=== PATIENT | female | born 1990 | race Caucasian/White ===

== ENCOUNTER 2018-05-21 08:41 | Emergency (ER) | payer SELFPAY ==
[2018-05-21 08:47] VITALS: BP 115/86
[2018-05-21] MEDS ORDERED: LIS50 PO (08:49)
--- NOTE | 2018-05-21 08:53 | ER Report ---
History and Physical Time Seen By MD: 08:52 Hx. of Stated Complaint: SORE THROAT SINCE SUNDAY HPI/ROS Otherwise healthy 28-year-old female with sore throat for 3 days. No fever c hills. Taking by mouth. Changes in voice. No trismus. Does also report her pain. Dysphasia was on the right side which improved, and now more on the left. No abdominal pain. No nausea vomiting. No rash Remainder of the 14 system rev: Yes Allergies: Coded Allergies: Penicillins (Verified Allergy, Unknown, 05/21/18) Home Meds Active Scripts Azithromycin (ZITHROMAX) 250 Mg Tablet, 1 TAB PO QDAY for 4 Days, #4 TAB Prov:LEON FITZGERALD MD 05/21/18 Reported Medications Lisdexamfetamine Dimesylate (VYVANSE) 50 Mg Capsule, 50 MG PO QDAY, CAPSULE 05/21/18 Reviewed Nurses Notes: Yes Hx Smoking: No Smoking Status: Never Smoker Exposure to Second Hand Smoke?: No Hx Substance Use Disorder: No Hx Alcohol Use: No Constitutional Vital Sign - Last 24 Hours 05/21/18 08:47 Temp 97.5 Pulse 109 Resp 20 B/P (MAP) 115/86 Pulse Ox 96 O2 Delivery Room Air Physical Exam General Appearance: Alert, no distress. Eyes: Pupils equal and round no pallor or injection. Mouth: Mucous membranes are moist. Throat: b/l erythema with left sided exudate. there is no tonsillar hypertrophy and uvula is midline. No [employer], No pain with tracheal rock. No trismus Musculoskeletal: Neck is supple non tender, no adenopathy. Skin: Warm and dry, no rashes. DIFFERENTIAL DIAGNOSIS: After history and physical exam differential diagnosis was considered for viral pharyngitis, strep pharyngitis, [employer], RPA, epiglottitis Medical Decision Making Data Points Laboratory Hematology Test 05/21/18 08:50 Group A Streptococcus (PCR) Positive (NEGATIVE) Chemistry Test 05/21/18 08:50 Group A Streptococcus (PCR) Positive (NEGATIVE) ED Course/Re-evaluation ED Course I'm complicated streptococcal pharyngitis. Taking by mouth. No trismus or changes in voice. Given Decadron and azithromycin secondary to penicillin allergy. Will continue with Azithromycin. Decision to Disposition Date: May 21, 2018 Decision to Disposition Time: 10:09 Depart Departure Latest Vital Signs Vital Signs Date Time Temp Pulse Resp B/P (MAP) Pulse Ox O2 Delivery O2 Flow Rate FiO2 05/21/18 08:47 97.5 109 20 115/86 96 Room Air Impression: Primary Impression: Streptococcal pharyngitis Condition: Improved Disposition: HOME OR SELF-CARE New Scripts Azithromycin (ZITHROMAX) 250 Mg Tablet 1 TAB PO QDAY for 4 Days, #4 TAB Prov: LEON FITZGERALD MD 05/21/18 Additional Instructions: START TAKING YOUR ANTIBIOTICS TOMORROW. WE GAVE YOU TODAY'S DOSE IN THE ER. LEON FITZGERALD MD May 21, 2018 08:53
[2018-05-21] MEDS ORDERED: DEXAMETHASONE 4 MG TAB PO ONE (09:30)
[2018-05-21] MEDS ORDERED: IBUPROFEN 600 MG TAB PO ONE (09:30)
[2018-05-21] MEDS ORDERED: AZITHROMYCIN 250 MG TAB PO ONE (09:55)
[2018-05-21] MEDS ORDERED: AZIT-1 PO (09:57)
== END 2018-05-21 10:10 | disposition home or self-care (01) ==
LOC: ER 09:00
DX: J02.0 Streptococcal pharyngitis (principal)
CPT/HCPCS: 87653; 99283; J8540; Q0144

== ENCOUNTER → 2018-09-10 | Outpatient (CLI) | payer SELFPAY ==
[~2018-09-10] MED LIST: AZIT-1 PO; LIS50 PO; NORG1TAB74 PO
[2018-09-10 09:04] LABS: PLATELET COUNT, AUTOMATED 327 K/uL (150-450)
[2018-09-10 09:35] LABS: LDL CHOLESTEROL 94 mg/dl
== END ==
LOC: LAB 08:36
PROVIDERS: ATTEND Internal Medicine
DX: F98.8 Other specified behavioral and emotional disorders with onset usually occurring in childhood and adolescence (principal); F41.1 Generalized anxiety disorder
CPT/HCPCS: 36415; 81001; 82040; 82247; 82310; 82374; 82435; 82465; 82565; 82947; 83718; 84075; 84132; 84155; 84295; 84443; 84450; 84460; 84478; 84520; 85025